=== PATIENT | male | born 1985 | race Caucasian/White ===

== ENCOUNTER 2017-11-20 08:57 | Emergency (ER) | payer SELFPAY ==
[~2017-11-20] VITALS: Ht 182.9 cm; Wt 73.0 kg
[2017-11-20 09:10] VITALS: BP 115/66; PULSE 102; RESP 16; TEMP 98.8; O2SAT 97
[2017-11-20] MEDS ORDERED: NAPR-855 PO ×2 (09:38→09:48)
--- NOTE | 2017-11-20 09:39 | PD ---
HPI Chief Complaint: Injury Time Seen by Provider: 09:21 Travel History International Travel<30 days: No Contact w/Intl Traveler<30days: No Traveled to known affect area: No History of Present Illness HPI 32-year-old male presents to the emergency department for evaluation of nerve injury to the left wrist. Patient states that one month ago he woke up and has been able to actively flex his right wrist. He saw a doctor in [place] who gave a cortisone injection anti-inflammatories, but states he still has the nerve issue. Patient states that he does not have insurance and has had issues following up. He denies any other injury. He has no chronic medical problems and takes no prescribed medications. Patient states the pain is pins and needles. Current pain is 2/10 to the right wrist. He denies any other symptoms or complaints. Mild severity. PFSH Past Medical History Medical History: Denies Significant Hx Diminished Hearing: No Tetanus Vaccination: > 5 Years Influenza Vaccination: No Past Surgical History Surgical History: No Previous Surgery Social History Alcohol Use: Yes (on occasion) Tobacco Use: Yes (2 pack a week) Substance Use: No Allergies-Medications (Allergen,Severity, Reaction): Coded Allergies: cortisone (Verified Adverse Reaction, Unknown, 11/20/17) nausea/vomiting Reported Meds & Prescriptions Reported Meds & Active Scripts Active No Active Prescriptions or Reported Medications Review of Systems Except as stated in HPI: all other systems reviewed are Neg Physical Exam Narrative GENERAL: Well-nourished, well-developed male patient, ambulatory. Afebrile. SKIN: Focused skin assessment warm/dry. HEAD: Normocephalic. Atraumatic. EYES: No scleral icterus. No injection or drainage. NECK: Supple, trachea midline. No JVD or lymphadenopathy. CARDIOVASCULAR: Regular rate and rhythm without murmurs, gallops, or rubs. Bilateral radial pulses are 2+. RESPIRATORY: Breath sounds equal bilaterally. No accessory muscle use. Lung sounds are clear to auscultation. GASTROINTESTINAL: Abdomen soft, non-tender, nondistended. MUSCULOSKELETAL: No cyanosis, or edema. Bilateral upper extremity strength 5/ 5. Patient has a normal grasp strength bilaterally. He has right wrist drop consistent with radial nerve palsy. BACK: Nontender without obvious deformity. No CVA tenderness. NEUROLOGICAL: Awake and alert. Cranial nerves II through XII intact. Motor and sensory grossly within normal limits. Five out of 5 muscle strength in all muscle groups. Normal speech. Data Data Last Documented VS Vital Signs Date Time Temp Pulse Resp B/P (MAP) Pulse Ox O2 Delivery O2 Flow Rate FiO2 11/20/17 09:10 98.8 102 16 115/66 (82) 97 Orders Orders Splint Or Brace Apply/Monitor (11/20/17 09:33) Naproxen (Naprosyn) (11/20/17 09:45) Mandatory Outpatient Referral (11/20/17 09:33) [facility] Medical Decision Making Medical Screen Exam Complete: Yes Emergency Medical Condition: Yes Medical Record Reviewed: Yes Differential Diagnosis Radial nerve palsy versus right wrist drop versus carpal tunnel Narrative Course 32-year-old male presents to the emergency department for evaluation of "nerve injury" to the right wrist for 1 month. He saw another physician previously was told he had a nerve injury. Physical exam is consistent with radial nerve palsy. He has no other symptoms or complaints. Patient is placed in a right wrist splint. He is given naproxen 500 mg p.o. for pain. A mandatory referral was placed for neurology for EMG testing. The patient will be discharged a prescription for naproxen. He is to return here for any acute worsening of symptoms. Patient verbalizes agreement. The patient was discharged in stable condition with instructions, including return instructions and follow up instructions. Diagnosis Primary Impression: Acute radial nerve palsy of right upper extremity Referrals: Neurologist call for appointment Patient Instructions: General Instructions, Radial Nerve Palsy (ED) Departure Forms: Tests/Procedures, Work Release Enter return to work date: November 21, 2017 Additional Instructions: Take naproxen as directed as needed for pain. Wear wrist splint. Follow-up with neurologist. Mandatory referral was placed. Return to the emergency department for any acute worsening of symptoms. Med/Other Pt SpecificInfo: Prescription(s) given Scripts Naproxen (Naproxen) 375 Mg Tab 375 MG PO BID Y for PAIN SCALE 1 TO 10, #60 TAB 0 Refills Prov: DakotahFaviola GODDARD 11/20/17 Disposition: 01 DISCHARGE HOME Condition: Stable Faviola Claire November 20, 2017 09:39
[2017-11-20] MEDS ORDERED: NAPROXEN 500 MG TAB PO ONE (09:45)
== END 2017-11-20 10:04 | disposition home or self-care (01) ==
LOC: NEPK 08:57
DX: G56.31 Lesion of radial nerve, right upper limb (principal); Z72.0 Tobacco use
CPT/HCPCS: 99283; L3908